=== PATIENT | female | born 1975 | race Asian ===

== ENCOUNTER → 2017-01-31 | Outpatient (CLI) | payer OTHER ==
--- NOTE | 2017-02-01 12:36 | MAMMOGRAPHY REPORT ---
BILATERAL DIGITAL SCREENING MAMMOGRAM TOMOSYNTHESIS WITH CAD: 01/31/2017 CLINICAL HISTORY: Routine screening. Baseline exam. TECHNIQUE: Bilateral breast tomosynthesis in addition to standard 2D mammography was performed. Roberte nt study was also evaluated with a Computer Aided Detection (CAD) system. COMPARISON: Comparison is made to exams dated: 07/28/2014 ultrasound, 07/28/2014 ultrasound, and 015 ultrasound - [facility]. BREAST COMPOSITION: The tissue of both breasts is heterogeneously dense, which may obscure small mas ses. FINDINGS: There are asymmetries in the superior posterior left breast, projecting over the pectorali s muscle on the MLO view that are equivocal for masses on the corresponding tomosynthesis images. Ad ditional spot compression tomosynthesis, ML views and possible ultrasound are recommended for further characterization. An asymmetry in the inferior posterior left breast on the MLO view most likely re presents normal overlapping tissue, as there is no definite mass on the tomosynthesis images. Howeve r, additional spot compression tomosynthesis views and possible ultrasound are recommended. No other suspicious mass, architectural distortion or cluster of microcalcifications is seen nel maya. IMPRESSION: ACR BI-RADS CATEGORY 0: INCOMPLETE EVALUATION: NEED ADDITIONAL IMAGING EVALUATION 1. The superior and inferior left breast asymmetries need additional imaging evaluation. 2. No mammographic evidence of malignancy in the right breast. The patient will be called to schedule an appointment. Approximately 10% of breast cancers are not detected with mammography. A negative mammographic report should not delay biopsy if a clinically suggestive mass is present. Rima Levine M.D. ay/:01/31/2017 15:08:13 Airport Duty Manager: Jose Johnson RT(R)(M), [facility] letter sent: Addl Imaging 0 BI-RADS Code: ACR BI-RADS Category 0: Incomplete Evaluation: Need Additional Imaging Evaluation
== END | disposition home or self-care (01) ==
LOC: C.MAMM 13:50
PROVIDERS: ATTEND Nurse Practitioner Family
DX: Z12.31 Encounter for screening mammogram for malignant neoplasm of breast (principal)

== ENCOUNTER → 2017-02-09 | Outpatient (CLI) | payer OTHER ==
--- NOTE | 2017-02-09 14:55 | MAMMOGRAPHY REPORT ---
UNILATERAL LEFT DIGITAL DIAGNOSTIC MAMMOGRAM TOMOSYNTHESIS AND TARGETED LEFT ULTRASOUND: 02/09/2017 CLINICAL HISTORY: Callback from screening mammogram for left breast asymmetries. TECHNIQUE: Breast tomosynthesis in addition to standard 2D mammography was performed. Spot compress ion left CC and MLO 2-D and tomosynthesis images and full field MLO tomosynthesis images were obtaine d. COMPARISON: Comparison is made to exams dated: 02/09/2017 ultrasound, 01/31/2017 mammogram, 01/19/2015 u ltrasound, and 07/28/2014 ultrasound - [facility]. BREAST COMPOSITION: The tissue of the left breast is heterogeneously dense, which may obscure small masses. FINDINGS: Spot compression views demonstrate an oval 15 mm mass within the left superior posterior br east on the MLO view only, thought to project laterally based on the tomosynthesis localizer images, as well as a possible other smaller partially circumscribed and partially obscured mass slightly supe riorly on the MLO tomosynthesis images. The left inferior breast asymmetry has the appearance of nor mal fibroglandular tissue on the tomosynthesis images. Targeted ultrasound was performed of the left upper outer quadrant in the region of the possible mamm ographic masses. In the left breast at 2:00, 8 cm from the nipple, there is an oval slightly hypoech oic solid circumscribed 9 x 5 x 8 mm mass as well as an adjacent similar-appearing hypoechoic circums cribed 4 x 4 x 2 mm mass. The larger mass is felt to correspond with the dominant mammographic mass. A BB was placed on the skin at the site of the sonographic mass and MLO tomosynthesis images were o btained. The BB is located near the site of the mammographic mass, indicating probable correlation b etween the sonographic and mammographic masses. Both masses are probably benign and have the sonogra phic appearances of probable fibroadenomas. Additionally, other similar-appearing masses have been s een on prior bilateral breast ultrasounds, including a similar-appearing 13 mm mass in the right 8:00 breast on the July 2014 exam. In the left breast at 2:30, 6 cm from the nipple, there is an oval a nechoic circumscribed 5 x 4 mm mass, which is stable dating back to at least the July 2014 exam and has the appearance of a cyst. An oval anechoic benign simple cyst measuring 5 x 6 mm is also seen wi thin the left 12:00 breast, 5 cm from the nipple. IMPRESSION: ACR-BI-RADS CATEGORY 3: PROBABLY BENIGN, TARGETED ULTRASOUND ACR-BI-RADS CATEGORY 3: PRO BABLY BENIGN 1. Hypoechoic circumscribed 9 mm mass in the left 2:00 breast on ultrasound, which is felt to corres pond with the mammographic mass. Adjacent smaller 4 mm hypoechoic mass is also seen on ultrasound. The masses are probably benign and likely represent fibroadenomas, especially given the presence of o ther similar-appearing masses bilaterally on prior ultrasound exams. Recommend follow-up diagnostic tomosynthesis mammograms of the left breast and possible ultrasound in 6 months to confirm stability. 2. The left inferior breast asymmetry has the appearance of normal fibroglandular tissue on the miguel tional images. The patient has been verbally notified of the results. Approximately 10% of breast cancers are not detected with mammography. A negative mammographic report should not delay biopsy if a clinically suggestive mass is present. Aniya Alfred M.D. ah/:02/09/2017 14:36:17 Tower Foreman: Jose RAPP(Matt)(Cate), [facility] letter sent: Follow Up Recommended 3 BI-RADS Code: ACR-BI-RADS Category 3: Probably Benign Ultrasound BI-RADS: ACR-BI-RADS Category 3: Pr obably Benign
== END | disposition home or self-care (01) ==
LOC: C.MAMM 13:46
PROVIDERS: ATTEND Nurse Practitioner Family
DX: N64.89 Other specified disorders of breast (principal); N63 Unspecified lump in breast

== ENCOUNTER → 2017-08-10 | Outpatient (CLI) | payer OTHER ==
--- NOTE | 2017-08-10 15:05 | MAMMOGRAPHY REPORT ---
UNILATERAL LEFT DIGITAL DIAGNOSTIC MAMMOGRAM TOMOSYNTHESIS WITH CAD AND TARGETED LEFT ULTRASOUND: 07/14 CLINICAL HISTORY: Short interval follow-up of left breast masses. The patient reports no current com plaints. TECHNIQUE: Breast tomosynthesis in addition to standard 2D mammography was performed. Current study was also evaluated with a Computer Aided Detection (CAD) system. Left CC and MLO 2D and tomosynthesi s images were obtained. COMPARISON: Comparison is made to exams dated: 02/09/2017 mammogram, 02/09/2017 ultrasound, 01/31/2017 mammogram, 01/19/2015 ultrasound, 07/28/2014 ultrasound, and 07/28/2014 ultrasound - [facility]. BREAST COMPOSITION: The tissue of the left breast is heterogeneously dense, which may obscure small masses. FINDINGS: The previously seen oval mass with predominantly obscured margins in the left superior post erior breast on the MLO view appears stable to less prominent compared to the January 2017 exam, cu rrently measuring 12 mm mammographically. The remainder of the left breast is stable compared to christian or exams, without suspicious masses, calcifications, or areas of architectural distortion noted. Asy mmetry within the left medial breast on the cc view is stable and has the appearance of normal fibrog landular tissue on the tomosynthesis images. Targeted ultrasound was performed of the left 2:00 breast in the region of the previously seen mammog raphic masses. In the left breast at 2:00, 8 cm from the nipple, there is an oval hypoechoic circums cribed parallel mass which measures 7 x 8 mm. The mass appears stable to slightly decreased in size, previously measuring 9 x 5 x 8 mm. This mass is felt to correspond with the mammographic mass and is probably benign and may represent a fibroadenoma or complicated cyst. The adjacent hypoechoic round circumscribed mass is also slightly less prominent, currently measuring 3 x 3 mm, previously measurin g 4 x 2 x 4 mm; this mass is also probably benign and may represent a complicated cyst. A few small anechoic benign cysts were also noted during the exam, including a 4 mm cyst in the left breast at 2: 00, 4 cm from the nipple, and 2 adjacent 5 and 3 mm cysts in the left breast at 1:00, 5 cm from the n ipple. IMPRESSION: ACR-BI-RADS CATEGORY 3: PROBABLY BENIGN, TARGETED ULTRASOUND ACR-BI-RADS CATEGORY 3: PRO BABLY BENIGN Hypoechoic benign-appearing 8 mm mass in the left breast at 2:00 is stable to slightly decreased in s ize compared to the January 2017 exam. This is felt to correspond with the mammographic mass and i s probably benign and may represent a fibroadenoma or complicated cyst. Recommend diagnostic tomosyn thesis mammograms and repeat targeted ultrasound of the left breast in 6 months to confirm longer sta bility of the left 2:00 breast mass as well as the adjacent smaller benign-appearing 3 mm mass seen o n ultrasound. Routine mammography of the right breast will be due at that time. The patient has been verbally notified of the results. Approximately 10% of breast cancers are not detected with mammography. A negative mammographic report should not delay biopsy if a clinically suggestive mass is present. Aniya Alfred M.D. ah/:08/10/2017 08:30:02 Apprentice Embalmer: Meghna RAPP(Matt)(Cate), [facility] letter sent: Follow Up Recommended 3 BI-RADS Code: ACR-BI-RADS Category 3: Probably Benign Ultrasound BI-RADS: ACR-BI-RADS Category 3: Pr obably Benign
== END | disposition home or self-care (01) ==
LOC: C.MAMM 07:49
PROVIDERS: ATTEND Nurse Practitioner Family
DX: N63.20 Unspecified lump in the left breast, unspecified quadrant (principal)